=== PATIENT | male | born 1945 | race Caucasian/White ===

== ENCOUNTER 2020-09-05 11:45 | Outpatient (CLI) | payer MEDICARE, BC | END 2020-09-05 11:46 | disposition home or self-care (01) | LOC: CSHRAD 11:45 | PROVIDERS: ATTEND Family Medicine Sports Medicine | DX: M25.511 Pain in right shoulder (principal); M19.011 Primary osteoarthritis, right shoulder; M89.9 Disorder of bone, unspecified ==